=== PATIENT | male | born 1965 | race Caucasian/White ===

== ENCOUNTER → 2024-03-11 19:55 | Outpatient (REF) | payer OTHER, SELFPAY | LOC: MRI 3T 19:55 | PROVIDERS: ATTENDING PHYSICIAN Specialist; FAMILY PHYSICIAN Family Medicine | DX: R97.20 Elevated prostate specific antigen [PSA] (principal); N40.2 Nodular prostate without lower urinary tract symptoms; D40.0 Neoplasm of uncertain behavior of prostate | CPT/HCPCS: 72197; A9575 ==

== ENCOUNTER → 2024-06-11 13:53 | Outpatient (REF) | payer OTHER, SELFPAY | LOC: RAD 13:53 | PROVIDERS: ATTENDING PHYSICIAN Student in an Organized Health Care Education/Training Program; FAMILY PHYSICIAN Family Medicine | DX: I10 Essential (primary) hypertension (principal); M79.662 Pain in left lower leg | CPT/HCPCS: 93971 ==